=== PATIENT | male | born 1960 | race Caucasian/White ===

== ENCOUNTER 2017-10-23 08:57 | Emergency (ER) | payer OTHER ==
[~2017-10-23] VITALS: Wt 85.6 kg
[2017-10-23] MEDS ORDERED: SOD CHLORIDE 0.9% 1,000 ML IV STA (09:12)
[2017-10-23] MEDS ORDERED: NIFEdipine (XL) 60 MG TAB PO ONE (09:30)
[2017-10-23 09:39] LABS: BASOPHIL # 0.1 10^3/ul (0.0-0.1); BASOPHILS % 1.2 % (0.0-2.0); EOSINOPHILS # 0.3 10^3/ul (0.0-0.5); EOSINOPHILS % 4.9 % (0.0-7.0); HEMATOCRIT 47.8 % (42.0-52.0); HEMOGLOBIN 16.2 g/dl (14.0-18.0); LYMPHOCYTES # 2.1 10^3/ul (0.8-2.9); LYMPHOCYTES % 41.3 % (15.0-51.0); MEAN CORPUSCULAR HEMOGLOBIN 30.3 pg (29.0-33.0); MEAN CORPUSCULAR HGB CONC 33.9 g/dl (32.0-37.0); MEAN CORPUSCULAR VOLUME 89.5 fl (82.0-101.0); MEAN PLATELET VOLUME 11.1 fl (7.4-10.4); MONOCYTE # 0.3 10^3/ul (0.3-0.9); MONOCYTES % 6.7 % (0.0-11.0); NEUTROPHIL # 2.3 10^3/ul (1.6-7.5); NEUTROPHILS % 45.7 % (39.0-77.0); PLATELET COUNT 217 10^3/UL (140-415); RED BLOOD COUNT 5.34 10^6/ul (4.70-6.10); RED CELL DISTRIBUTION WIDTH 13.5 % (11.5-14.5); WHITE BLOOD COUNT 5.1 10^3/ul (4.8-10.8)
--- NOTE | 2017-10-23 09:48 | ERD ---
ER Documentation Chief Complaint Chief Complaint REFILL OF MEDS, HTN HPI 57-year-old man here for medication refill, he states he ran out of his nicardipine about 3 days ago. He describes nonexertional nonradiating chest discomfort for the last 3 days, intermittently. He states he has had this discomfort in the past. He denies shortness of breath, no fevers or chills, no cough, no calf or leg swelling. Patient denies headache or blurry vision, denies weakness in his arms or legs, no slurred speech. ROS All systems reviewed and are negative except as per history of present illness. Medications Home Meds Active Scripts Nifedipine* (Nifedipine ER*) 60 Mg Tablet.sa, 60 MG PO DAILY, #30 TAB.SA Prov:LUIS MIGUEL SANTOS MD 10/23/17 Reported Medications Omeprazole* (Omeprazole*) 20 Mg Capsule.dr, 20 MG PO DAILY, #30 CAP 10/23/17 Nifedipine* (Nifedipine ER*) 60 Mg Tablet.sa, 60 MG PO DAILY, TAB.SA 10/23/17 Allergies Allergies: Coded Allergies: No Known Allergy (Unverified , 10/23/17) PMhx/Soc Hypertension History of Surgery: No Anesthesia Reaction: No Hx Neurological Disorder: No Hx Respiratory Disorders: No Hx Cardiac Disorders: Yes (htn) Hx Psychiatric Problems: No Hx Miscellaneous Medical Probl: No Hx Alcohol Use: Yes Hx Substance Use: No Hx Tobacco Use: No Smoking Status: Never smoker FmHx Family History: No diabetes Physical Exam Vitals Vital Signs Date Time Temp Pulse Resp B/P Pulse Ox O2 Delivery O2 Flow Rate FiO2 10/23/17 10:25 38 18 173/108 98 Room Air 10/23/17 08:59 98.6 42 18 214/114 99 Physical Exam GENERAL: Well-developed, well-nourished, well-hydrated, in no apparent distress , looks nontoxic in appearance HEENT: Moist mucous membranes, pink conjunctiva, no cervical spine tenderness or step-off deformities, no goiter, no jaundice or icterus, extraocular movements intact without pain. No submandibular induration, and no pharyngeal erythema NEURO: Alert and oriented 3, cranial nerves II through XII intact bilaterally, pupils equal round reactive to light, no focal deficits or facial asymmetry, sensation intact distally Strength 5/5 in upper and lower extremities bilaterally CARDIAC: Bradycardic and regular, no murmurs rubs or gallops LUNGS: Clear bilaterally no wheezing crackles or stridor ABDOMEN: Soft nontender, no guarding, no rigidity, no rebound, no psoas sign no obturator sign. Normoactive bowel sounds SKIN: Warm and dry to touch, no abrasions, contusions, or hematomas, no lacerations, no ecchymosis, no target lesions, and without ulcers EXTREMITIES: No clubbing cyanosis or edema, calves are bilaterally symmetrical, no Homans sign, no popliteal cord sign. Distal pulses equal and bilateral PSYCH: Normal affect without agitation or irritability Result Diagram: 10/23/1791410/23/17914 Results 24 hrs Laboratory Tests Test 10/23/17 09:15 White Blood Count 5.110^3/ul Red Blood Count 5.3410^6/ul Hemoglobin 16.2g/dl Hematocrit 47.8% Mean Corpuscular Volume 89.5fl Mean Corpuscular Hemoglobin 30.3pg Mean Corpuscular Hemoglobin Concent 33.9g/dl Red Cell Distribution Width 13.5% Platelet Count 81926^3/UL Mean Platelet Volume 11.1fl Neutrophils % 45.7% Lymphocytes % 41.3% Monocytes % 6.7% Eosinophils % 4.9% Basophils % 1.2% Nucleated Red Blood Cells % 0.0/100WBC Neutrophils # 2.310^3/ul Lymphocytes # 2.110^3/ul Monocytes # 0.310^3/ul Eosinophils # 0.310^3/ul Basophils # 0.110^3/ul Nucleated Red Blood Cells # 0.010^3/ul Sodium Level 141mmol/L Potassium Level 3.9mmol/L Chloride Level 99mmol/L Carbon Dioxide Level 29mmol/L Anion Gap 17 Blood Urea Nitrogen 12mg/dl Creatinine 1.06mg/dl Glucose Level 189mg/dl Calcium Level 9.6mg/dl Total Bilirubin 0.7mg/dl Direct Bilirubin 0.00mg/dl Indirect Bilirubin 0.7mg/dl Aspartate Amino Transf (AST/SGOT) 61IU/L Alanine Aminotransferase (ALT/SGPT) 131IU/L Alkaline Phosphatase 68IU/L Troponin I < 0.012ng/ml Total Protein 7.9g/dl Albumin 4.4g/dl Globulin 3.50g/dl Albumin/Globulin Ratio 1.25 Lipase 217U/L Current Medications Medications (Trade) Dose Ordered Sig/Tirso Route PRN Reason Start Time Stop Time Status Last Admin Dose Admin Nifedipine 60 mg 60 mg ONCE ONCE PO 10/23/17 09:30 10/23/17 09:31 DC 10/23/17 09:35 Sodium Chloride (NS) 1,000 ml @ 1,000 mls/hr Q1H STAT IV 10/23/17 09:12 10/23/17 10:11 DC 10/23/17 09:35 Enalaprilat (Vasotec Iv) 1.25 mg ONCE ONCE IV 10/23/17 11:00 10/23/17 11:01 DC 10/23/17 10:56 Hydralazine HCl (Apresoline) 10 mg ONCE ONCE IV 10/23/17 11:30 10/23/17 11:31 10/23/17 11:18 Hydralazine HCl (Apresoline) 20 mg STK-MED ONCE .ROUTE 10/23/17 11:15 10/23/17 11:16 DC Procedures/MDM IV line was established patient was placed on windows laptop technician rhythm strip revealed a sinus bradycardia at about 50 bpm with upright P and T waves. Patient was afebrile EKG performed, read by me revealed a sinus bradycardia 40 bpm, left axis deviation, right ventricular conduction delay with a QRS duration of 108 ms, no concerning ST elevations or depressions noted. Chest X-ray 1V Interpreted by me: Soft Tissue: No acute abnormalities Bones: No acute abnormalities Mediastinum/Cardiac Silhouette/Lungs: No acute abnormalities CBC and electrolytes were normal, liver function tests were normal, troponin was negative. I treated the patient here with 1 L normal saline intravenously and nicardipine extended release 60 mg p.o. 1. Patient's blood pressure remains elevated and he required enalapril 1.25 mg IV 1 later followed by hydralazine 10 mg IV 1. Patient remained hypertensive with a diastolic blood pressure of about 100 mmHg , he is also bradycardic at 40 bpm. He states he has had intermittent dizziness although denies symptoms at this time and wants to leave the hospital. I recommended admission for symptomatic bradycardia and hypertensive emergency although patient refused this, he did not provide an exact reason as to why he wanted to leave. I did discuss with him the risks of leaving AGAINST MEDICAL ADVICE including , disability, stroke, acute coronary syndrome, a delay in diagnosis, and other concerning possibilities. Despite my explanation the patient still wanted to leave AGAINST MEDICAL ADVICE. Differential diagnoses considered, included but not limited to acute coronary syndrome, pulmonary embolism, aortic dissection, abdominal aortic aneurysm, sepsis, stroke, meningitis, encephalitis, pneumonia, appendicitis, cholecystitis , bowel obstruction, pyelonephritis, nephrolithiasis, cystitis, as well as metabolic, hematologic, and electrolyte abnormalities. As well as abscess, cellulitis, fractures, and dislocations. Departure Diagnosis: Primary Impression: Hypertensive emergency Additional Impression: Symptomatic bradycardia Ruled Out: Accelerated hypertension Condition: LUIS MIGUEL Ramos MD Oct 23, 2017 09:48
[2017-10-23 10:05] LABS: ALANINE AMINOTRANSFERASE 131 IU/L (13-69); ALBUMIN 4.4 g/dl (3.3-4.9); ALBUMIN/GLOBULIN RATIO 1.25; ALKALINE PHOSPHATASE 68 IU/L (42-121); ANION GAP 17 (8-16); ASPARTATE AMINO TRANSFERASE 61 IU/L (15-46); BILIRUBIN,INDIRECT 0.7 mg/dl (0-1.1); BILIRUBIN,TOTAL 0.7 mg/dl (0.2-1.3); BLOOD UREA NITROGEN 12 mg/dl (7-20); CALCIUM 9.6 mg/dl (8.4-10.2); CARBON DIOXIDE 29 mmol/L (21-31); CHLORIDE 99 mmol/L (97-110); CREATININE 1.06 mg/dl (0.61-1.24); GLUCOSE 189 mg/dl (70-220); POTASSIUM 3.9 mmol/L (3.5-5.1); SODIUM 141 mmol/L (135-144); TOTAL PROTEIN 7.9 g/dl (6.1-8.1)
--- NOTE | 2017-10-23 10:05 | RADRPT ---
PROCEDURE: XR Chest. CLINICAL INDICATION: Abdominal pain. TECHNIQUE: Single frontal view. COMPARISON: None. FINDINGS: The lungs are clear. The heart is mildly enlarged. There is no pleural effusion. There is no pneumothorax. IMPRESSION: 1. Mild cardiomegaly. 2. Otherwise unremarkable chest radiograph. RPTAT: QQ .Jeancarlos Mcleod MD, MD Date Time Electronically viewed and signed by .Jeancarlos Mcleod MD, MD on 10/23/2017 10:05 .R/
[2017-10-23] MEDS ORDERED: OMEP20CA16 PO (10:07)
[2017-10-23] MEDS ORDERED: NIFE60TA7 PO ×2 (10:07→10:52)
[2017-10-23 10:17] LABS: TROPONIN-I < 0.012 ng/ml (0.00-0.12)
[2017-10-23] MEDS ORDERED: ENALAPRILAT 1.25 MG INJ IV ONE (11:00)
[2017-10-23] MEDS ORDERED: hydrALAzine 20 MG INJ ONE (11:15)
[2017-10-23 11:30] VITALS: BP 161/79; PULSE 43; RESP 20
[2017-10-23] MEDS ORDERED: hydrALAzine 20 MG INJ IV ONE (11:30)
== END 2017-10-23 11:32 | disposition home or self-care (01) ==
LOC: E/R 08:57
DX: I16.1 Hypertensive emergency (principal); R00.1 Bradycardia, unspecified
CPT/HCPCS: 36415; 71010; 80053; 83690; 84484; 85025; 96374; 96375; 99285; J0360; J7030